=== PATIENT | male | born 1970 | race Caucasian/White ===

== ENCOUNTER 2022-09-07 16:58 | Emergency (ER) | payer OTHER ==
[2022-09-07 17:06] VITALS: RESP 20; BMI 20.1
[2022-09-07] MEDS ORDERED: ACETAMINOPHEN 500 MG TABLET (FP) PO ONE (17:40)
[2022-09-07] MEDS ORDERED: SODIUM CHLORIDE 0.9% 500 ML INFUS.BAG IV ONE ×2 (17:40→19:36)
[2022-09-07] MEDS ORDERED: KETOROLAC TROMETHAMINE 15 MG/ML VIAL IVPUSH ONE (17:40)
[2022-09-07] MEDS ORDERED: KETOROLAC TROMETHAMINE 15 MG/ML VIAL ONE (17:59)
[2022-09-07] MEDS ORDERED: ACETAMINOPHEN 500 MG TABLET (FP) ONE (18:00)
[2022-09-07 20:24] VITALS: BP 93/54; PULSE 89; TEMP 99
== END 2022-09-07 20:32 | disposition home or self-care (01) ==
LOC: JERFT 16:58
PROC: 3E0333Z Introduction of Anti-inflammatory into Peripheral Vein, Percutaneous Approach (ICD-10-PCS; principal; 2022-09-07)
DX: R19.7 Diarrhea, unspecified (principal); M79.10 Myalgia, unspecified site; R51.9 Headache, unspecified; R50.9 Fever, unspecified; R00.0 Tachycardia, unspecified
CPT/HCPCS: 0241U-QW; 99284-25

== ENCOUNTER 2023-02-23 19:28 | Emergency (ER) | payer OTHER ==
[2023-02-23 19:51] VITALS: BP 120/70; PULSE 90; RESP 18; TEMP 98.7; BMI 21.9
[2023-02-23] MEDS ORDERED: DALBAVANCIN HCL 1,500 MG in DEXTROSE 5%-WATER - 500 ML IVPB ONE (21:41)
[2023-02-23] MEDS ORDERED: KETOROLAC TROMETHAMINE 15 MG/ML VIAL IVPUSH ONE (21:41)
[2023-02-23] MEDS ORDERED: KETOROLAC TROMETHAMINE 15 MG/ML VIAL ONE (22:22)
[2023-02-23] MEDS ORDERED: DALBAVANCIN HCL 500 MG VIAL (RESTRICTED TO ID ONLY) IVPB ONE (22:22)
== END 2023-02-24 00:17 | disposition home or self-care (01) ==
LOC: JER 19:28
PROC: 3E03329 Introduction of Other Anti-infective into Peripheral Vein, Percutaneous Approach (ICD-10-PCS; principal; 2023-02-23)
PROC: 3E0333Z Introduction of Anti-inflammatory into Peripheral Vein, Percutaneous Approach (ICD-10-PCS; 2023-02-23)
DX: R51.9 Headache, unspecified (principal); L03.211 Cellulitis of face; R23.8 Other skin changes
CPT/HCPCS: 99284-25; J0875

== ENCOUNTER 2024-06-20 05:18 | Day surgery (SDC) | payer OTHER ==
[2024-06-16 12:30] VITALS: BMI 21.9
[2024-06-20] MEDS ORDERED: MIDAZOLAM HCL 2 MG/2 ML SINGLE DOSE VIAL ONE (07:36)
[2024-06-20] MEDS ORDERED: LIDOCAINE HCL/PF 2% SDV 5ML VIAL ONE (07:36)
[2024-06-20] MEDS ORDERED: PROPOFOL 20 ML ONE (07:36)
[2024-06-20] MEDS ORDERED: DEXTROSE 5%-0.45% SALINE 1,000 ML IV SCH (07:45)
[2024-06-20] MEDS ORDERED: ceFAZolin SODIUM 1 GM VIAL ONE (07:52)
[2024-06-20] MEDS ORDERED: DEXAMETHASONE SOD PHOSPHATE 4 MG/1 ML VIAL ONE (07:52)
[2024-06-20] MEDS: ceFAZolin SODIUM 1 GM VIAL IVPB ONE (07:55)
[2024-06-20] MEDS ORDERED: KETOROLAC TROMETHAMINE 30 MG/1 ML VIAL ONE (08:03)
[2024-06-20] MEDS ORDERED: ONDANSETRON 4 MG/2 ML VIAL ONE (08:03)
[2024-06-20] MEDS ORDERED: HEPARIN NA (PORCINE) 5,000 UNITS/ML 1ML VIAL ONE (08:06)
[2024-06-20] MEDS: HEPARIN NA (PORCINE) 5,000 UNITS/ML 1ML VIAL IP ONE (08:12)
[2024-06-20] MEDS: SODIUM BICARBONATE 8.4% 50 MEQ/50 ML DISP.SYRIN IV ONE (08:12)
[2024-06-20] MEDS: LIDOCAINE HCL 1%, 10 MG/ML (20ML VIAL) INF ONE (08:12)
[2024-06-20] MEDS ORDERED: oxyCODONE HCL 5 MG TABLET PO PRN ×2 (08:30)
[2024-06-20] MEDS ORDERED: ONDANSETRON 4 MG/2 ML VIAL IVPUSH PRN (08:30)
[2024-06-20] MEDS ORDERED: PROMETHAZINE HCL 25 MG/1 ML VIAL IVPB PRN (08:30)
[2024-06-20] MEDS ORDERED: LACTATED RINGERS SOLUTION 1,000 ML IV SCH (08:30)
[2024-06-20] MEDS: ACETAMINOPHEN 1000 MG/100 ML BAG IVPB ONE (09:03)
[2024-06-20] MEDS: ACETAMINOPHEN INJECTION 100 ML ONE (09:03)
[2024-06-20 09:40] VITALS: RESP 18
[2024-06-20 12:12] VITALS: TEMP 97.7
[2024-06-20 13:04] VITALS: BP 122/78; PULSE 87
== END 2024-06-20 13:40 | disposition home or self-care (01) ==
LOC: JASU-SURG 05:18
PROVIDERS: ATTEND Urology
PROC: 0T7B8ZZ Dilation of Bladder, Via Natural or Artificial Opening Endoscopic (ICD-10-PCS; principal; 2024-06-20 07:30)
PROC: 3E0K8GC Introduction of Other Therapeutic Substance into Genitourinary Tract, Via Natural or Artificial Opening Endoscopic (ICD-10-PCS; 2024-06-20 07:30)
DX: N30.10 Interstitial cystitis (chronic) without hematuria (principal); R35.0 Frequency of micturition; R39.15 Urgency of urination
CPT/HCPCS: 94760; J0131; J1644